=== PATIENT | male | born 1980 | race Caucasian/White ===

== ENCOUNTER 2017-07-02 19:17 | Emergency (ER) | payer OTHER ==
[2017-07-02 19:30] VITALS: BP 129/83; PULSE 75; RESP 18; TEMP 97.9; O2SAT 99
[2017-07-02] MEDS ORDERED: FLUORESCEIN SODIUM 1 MG STRIP OP ONE (19:30)
[2017-07-02] MEDS ORDERED: PROPARACAINE 0.5% 15 ML OPHT DROP ONE (19:30)
[2017-07-02] MEDS ORDERED: TOBRAMYCIN 0.3% SOLN PREPACK OPHT.BTL TAKEHOME ONE (19:42)
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
== END 2017-07-02 19:52 | disposition home or self-care (01) ==
DX: S05.02XA Injury of conjunctiva and corneal abrasion without foreign body, left eye, initial encounter (principal); W50.0XXA Accidental hit or strike by another person, initial encounter

== ENCOUNTER 2018-03-29 08:17 | Observation (INO) | payer OTHER ==
[2018-03-29] MEDS ORDERED: NS 1,000 ML IV ONE ×2 (08:29→09:22)
[2018-03-29 09:14] LABS: PLATELET COUNT 153 10^3/uL (150-400)
--- NOTE | 2018-03-29 09:38 | EDPHY ---
H & P Stated Complaint: syncope x 3 today Time Seen by Provider: 03/29/18 08:24 HPI/ROS: CHIEF COMPLAINT: Syncope HISTORY OF PRESENT ILLNESS: The patient presents to the ED after 3 episodes of syncope today. The patient denies any chest pain or shortness of breath. The patient denies any fever, cough or congestion. He denies any melena. The patient does have a history of back pain. He has been taking Flexeril at night since of last week. He does use occasional Aleve. The patient denies any significant past medical history. The patient has no history of exertional chest pain or shortness of breath. Patient does report he works in a high stress job. REVIEW OF SYSTEMS: A comprehensive 10 point review of systems is otherwise negative aside from elements mentioned in the history of present illness. Source: Patient Exam Limitations: No limitations - Personal History Current Tetanus Diphtheria and Acellular Pertussis (TDAP): Yes Tetanus Vaccine Date: 2010 - Medical/Surgical History Hx Asthma: No Hx Chronic Respiratory Disease: No Hx Diabetes: No Hx Cardiac Disease: No Hx Renal Disease: No Hx Cirrhosis: No Hx Alcoholism: No Hx HIV/AIDS: No Hx Splenectomy or Spleen Trauma: No Other PMH: anxiety/knee surg - Social History Smoking Status: Never smoked - Physical Exam Exam: General Appearance: Alert, no distress Eyes: Pupils equal and round no pallor or injection ENT, Mouth: Mucous membranes moist Respiratory: There are no retractions, lungs are clear to auscultation Cardiovascular: Regular rate and rhythm Gastrointestinal: Abdomen is soft and nontender, no masses, bowel sounds normal Neurological: A&O, normal motor function, normal sensory exam, normal cranial nerves Skin: Warm and dry, no rashes Musculoskeletal: Neck is supple nontender Extremities: symmetrical, full range of motion Psychiatric: Patient is oriented X 3, there is no agitation Constitutional: Initial Vital Signs Temperature (C) 36.5 C 03/29/18 08:21 Heart Rate 67 03/29/18 08:21 Respiratory Rate 18 03/29/18 08:21 Blood Pressure 108/77 03/29/18 08:21 O2 Sat (%) 100 03/29/18 08:21 O2 Delivery Mode Room Air Allergies/Adverse Reactions: No Known Allergies Allergy (Verified 03/29/18 08:20) Home Medications: Medication Instructions Recorded Flexeril 10 MG (*) 03/29/18 Medical Decision Making - Diagnostics EKG Interpretation: EKG: Complete interpretation has been separately recorded in the [facility] archive. Summary impression: Sinus rhythm Imaging Results: Imaging Impressions Chest/Thorax CTA 03/29/18 10:40 Impression: 1. No acute pulmonary embolus. 2. Tiny less than 4 mm nodules in the right upper lobe are more than likely benign given age. Would only consider 12 month follow-up if the patient is at increased risk of lung cancer. Findings and recommendations discussed with Lee Ramon at 1151 hour, . ED Course/Re-evaluation: The patient presents to the ED after having 3 discrete episodes of syncope today. The 1st syncope may have been positional as it occurred in the restroom the 2nd 2 episodes occurred while sitting. The patient does have a history of anxiety and reportedly is in the high stress environment. He denies any significant chest pain or shortness of breath. He denies asymmetric calf pain or swelling. He denies any pleuritic symptoms. The patient presents the emergency department with an EKG that demonstrates no ischemic changes but does demonstrate mild evidence of right heart strain. An echocardiogram was performed which did demonstrate some evidence of right ventricular hypertrophy and a bicuspid aortic valve. CT angiogram of the chest demonstrated no evidence of a pulmonary embolism or dissection. The case was discussed with Dr. Thomas from Cardiology who reviewed the echocardiogram who recommends admission to the hospital for 24 hr telemetry monitoring in the setting of his abnormal echocardiogram. The patient remained hemodynamically stable throughout his time in the emergency department. I re-evaluated the patient at 12:00 p.m.. He is amenable for hospitalization. Consultation was made with the hospitalist service. The patient will be admitted by Dr. Lentz Differential Diagnosis: Differential diagnosis considered includes vasovagal episode, dehydration, metabolic abnormality, arrhythmia, pulmonary embolism, dissection, valvular heart disease - Data Points Laboratory Results: Laboratory Results 03/29/18 08:55 03/29/18 08:55 03/29/18 03/29/18 03/29/18 08:55 08:55 08:55 WBC 7.57 10^3/uL 10^3/uL (3.80-9.50) RBC 5.09 10^6/uL 10^6/uL (4.40-6.38) Hgb 15.8 g/dL g/dL (13.7-17.5) Hct 46.1 % % (40.0-51.0) MCV 90.6 fL fL (81.5-99.8) MCH 31.0 pg pg (27.9-34.1) MCHC 34.3 g/dL g/dL (32.4-36.7) RDW 12.6 % % (11.5-15.2) Plt Count 153 10^3/uL 10^3/uL (150-400) MPV 12.0 fL H fL (8.7-11.7) Neut % (Auto) 73.6 % % (39.3-74.2) Lymph % (Auto) 17.8 % % (15.0-45.0) [place] % (Auto) 6.6 % % (4.5-13.0) Eos % (Auto) 1.5 % % (0.6-7.6) Baso % (Auto) 0.4 % % (0.3-1.7) Nucleat RBC Rel Count 0.0 % % (0.0-0.2) Absolute Neuts (auto) 5.57 10^3/uL 10^3/uL (1.70-6.50) Absolute Lymphs (auto) 1.35 10^3/uL 10^3/uL (1.00-3.00) Absolute Monos (auto) 0.50 10^3/uL 10^3/uL (0.30-0.80) Absolute Eos (auto) 0.11 10^3/uL 10^3/uL (0.03-0.40) Absolute Basos (auto) 0.03 10^3/uL 10^3/uL (0.02-0.10) Absolute Nucleated RBC 0.00 10^3/uL 10^3/uL (0-0.01) Immature Gran % 0.1 % % (0.0-1.1) Immature Gran # 0.01 10^3/uL 10^3/uL (0.00-0.10) Sodium 140 mEq/L mEq/L (135-145) Potassium 4.8 mEq/L mEq/L (3.3-5.0) Chloride 105 mEq/L mEq/L (97-110) Carbon Dioxide 24 mEq/l mEq/l (22-31) Anion Gap 11 mEq/L mEq/L (6-14) BUN 22 mg/dL mg/dL (7-23) Creatinine 1.0 mg/dL mg/dL (0.7-1.3) Estimated GFR > 60 Glucose 103 mg/dL H mg/dL (70-100) Calcium 9.8 mg/dL mg/dL (8.5-10.4) Troponin I < 0.012 ng/mL ng/mL (0.000-0.034) Medications Given: Discontinued Medications Sodium Chloride (Ns) 1,000 mls @ 0 mls/hr IV EDNOW ONE; Wide Open PRN Reason: Protocol Stop: 03/29/18 08:30 Last Admin: 03/29/18 09:02 Dose: 1,000 mls Sodium Chloride (Ns) 1,000 mls @ 0 mls/hr IV EDNOW ONE; Wide Open PRN Reason: Protocol Stop: 03/29/18 09:23 Last Admin: 03/29/18 09:55 Dose: 1,000 mls Departure - Departure Disposition: [facility] Inpatient Acute Clinical Impression: Syncope Qualifiers: Encounter type: initial encounter Condition: Good Referrals: Leena Norman MD [Primary Care Provider] - As per Instructions
--- NOTE | 2018-03-29 09:46 | CPEKG ---
Test Reason : OPEN Blood Pressure : / mmHG Vent. Rate : 069 BPM Atrial Rate : 070 BPM P-R Int : 186 ms QRS Dur : 093 ms QT Int : 407 ms P-R-T Axes : 069 112 062 degrees QTc Int : 436 ms Sinus rhythm Left atrial enlargement Right axis deviation Confirmed by Lee Ramon ([id number]) on 03/29/2018 9:45:56 AM Referred By: Confirmed By:Lee Ramon
[2018-03-29] MEDS ORDERED: IOPAMIDOL (ISOVUE 370) 100 ML BTL IV ONE (11:05)
--- NOTE | 2018-03-29 11:28 | ECHO ---
[email or web address] [address] [address] Main: [phone] Fax: [email or web address] Echocardiogram Name: MATTHIEU WALLACE MR#: [id number] Study Date: 03/29/2018 Study Time: 10:12 AM Date of : 1980 Age: 37 year(s) Height: 182.9 cm (72 in.) Weight: 72.58 kg (160 lb.) BSA: 1.94 m2 Gender: Male Examination: Echo Indication: Chest pain/syncope x 3 Image Quality: Contrast: Requested by: Lee Ramon BP: 121 mmHg/83 mmHg Heart Rate: Rhythm: Indication: Chest pain/syncope x 3 Procedure Staff Sample Body Builder: Alexus Carreno [facility] Reading Physician: Dori Thomas MD Requesting Provider: Conclusions: Normal size left ventricle. No LV hypertrophy. Global hypercontractility of the left ventricle. The ejection fraction is estimated to be 70-75 %. No regional wall motion abnormality. Normal diastolic LV function. Mildly dilated right ventricle. RV apical hypokinesis.. The right atrium is mildly dilated. Mild mitral valve regurgitation is present. Bicuspid aortic valve. Trivial to mild aortic valve regurgitation. No aortic valve stenosis is present. Mild tricuspid regurgitation is present. The pulmonary artery pressure is normal. Mildly dilated ascending aorta measuring 4.0 cm. No prior study Patient will require cardiology follow up because of BAV mildly dilated ascending aorta and RV abnormalities. Measurements: Chambers Valvular Assessment AV/MV Valvular Assessment TV/PV Normal Normal Normal Name Value Range Name Value Range Name Value Range Ao Ailyn (MM): 3.8 cm (2.2 cm-3.7 AV Vmax: 1.73 m/s (1 m/s-1.7 TR Vmax: 2.67 mm/s ( - ) cm) m/s) TR PGmax: 29 mmHg ( - ) IVSd (2D): 0.8 cm (0.6 cm-1.1 AV maxP mmHg ( - ) syst. PAP: 34 mmHg ( - ) cm) AV meanP mmHg ( - ) LVDd (2D): 4.5 cm (4.2 cm-5.9 MV E Vmax: 1.17 m/s ( - ) cm) Patient: MATTHIEU WALLACE Study Date: 03/29/2018 Page 1 of 2 10:12 AM LVDs (2D): 2.4 cm (2.1 cm-4 MV A Vmax: 0.80 m/s ( - ) cm) MV E/A: 1.46 ( - ) LVPWd (2D): 0.8 cm (0.6 cm-1 cm) LVEF (BP): 80 % (>=55 %) EF Range: 70-75 % Continued Measurements: Chambers Valvular Assessment AV/MV Valvular Assessment TV/PV Name Value Name Value Name Value LADs: 2.8 cm MV E/E' Septal: 9.40 CVP (est.): 5 mmHg LADs Lon.7 cm MV E/E' Lateral: 7.90 LA Area: 14.3 cm2 Additional Vessels Name Value Ao Ascendin.0 cm Findings: Left Ventricle: Normal size left ventricle. No LV hypertrophy. Global hypercontractility of the left ventricle. The ejection fraction is estimated to be 70-75 %. No regional wall motion abnormality. Normal diastolic LV function. Right Ventricle: Mildly dilated right ventricle. RV apical hypokinesis.. Left Atrium: The left atrium is normal in size. Right Atrium: The right atrium is mildly dilated. Mitral Valve: The mitral valve is normal in appearance and function. Mild mitral valve regurgitation is present. Aortic Valve: Bicuspid aortic valve. Trivial to mild aortic valve regurgitation. No aortic valve stenosis is present. Tricuspid Valve: The tricuspid valve is normal in appearance and function. Mild tricuspid regurgitation is present. The pulmonary artery pressure is normal. Pulmonic Valve: The pulmonic valve is normal in appearance and function. Aorta: The aorta is normal. Mildly dilated ascending aorta measuring 4.0 cm. Pericardium: No pericardial effusion. (No Signature Object) Patient: MATTHIEU WALLACE Study Date: 03/29/2018 Page 2 of 2 10:12 AM [id number]
[2018-03-29] MEDS ORDERED: CYCLOBENZAPRINE 10 MG TAB PO PRN (15:47)
[2018-03-29] MEDS ORDERED: ALPRAZOLAM 1 MG PO PRN (15:47)
[2018-03-29] MEDS ORDERED: ONDANSETRON DISINTEGRATING 4 MG TAB PO PRN (16:57)
[2018-03-29] MEDS ORDERED: ACETAMINOPHEN 325 MG TAB PO PRN (16:57)
[2018-03-29] MEDS ORDERED: ONDANSETRON 4 MG/2 ML VIAL IVP PRN (16:57)
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
[2018-03-29] MEDS ORDERED: NAPROXEN SODIUM 220 MG TAB PO PRN (21:06)
--- NOTE | 2018-03-29 21:34 | GCON ---
CARDIOLOGY CONSULTATION DATE OF CONSULTATION: 03/29/2018 REFERRING PHYSICIAN: Luis Lentz MD CHIEF COMPLAINT: Syncope. HISTORY OF PRESENT ILLNESS: We were asked by Dr. Lentz to visit the patient. The patient is a pl easant 37-year-old male with no previous cardiac diagnoses. He is admitted after 3 separate episodes of syncope today that occurred in fairly rapid succession. 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 When he woke up this morning, got out of bed, he felt slightly lightheaded. He we nt into the bathroom and turned on the shower. He sat on the toilet, not to have a bowel movement, b ut to just sit down. All of a sudden he felt lightheaded and a feeling of being drained. He thinks he fainted for a few seconds because he dropped his phone, but he did not fall off the toilet. He th en got up, took a shower and went downstairs. He was sitting eating breakfast and felt lightheaded a gain and put his head down on the table. He did not notice chest pain or palpitations at this time. His reports that he looked harley and his pupils were dilated. He was very concerned and was therefore driven to his primary care office. He felt unwell in the car , again with a prodrome of presyncope. Before he could get out of the car, he had a short episode of syncope. He was then sent to the [facility] Emergency Department. In the ER, his initial blood pressure was 108/77 with a heart rate of 67. He reports feeling again t hat presyncopal sensation. So far on the monitor, he has not had any arrhythmias. He does report th at occasionally he feels palpitations, but he does not report any palpitations associated with today' s episodes of presyncope or syncope. Over the past week he has had back pain, and he has been taking Flexeril nightly. He also has been taking Aleve nightly for several months. REVIEW OF SYSTEMS: Under significant stress. He has a long history of anxiety. Otherwise, a full 1 0-point review of systems was performed, and is negative except that which is outlined above. He jensen s have a history of migraines, but migraines have not increased recently. He has been eating and dri nking normally. No illicit drug use and no increased alcohol intake beyond his moderate baseline. ALLERGIES: No known drug allergies. PAST MEDICAL HISTORY: 1. Anxiety. 2. Bicuspid aortic valve diagnosed this admission. 3. Mildly dilated ascending aorta diagnosed this admission. OUTPATIENT MEDICATIONS: Flexeril and Aleve as detailed above. No zfbo-hoa-kstanfh supplements. Chapo parker p.r.n. He has not taken this in the past few days. SOCIAL HISTORY: Patient is . His is at the bedside. They are both mechanical engineers at . They have a 4-year-old daughter. He does not smoke cigarettes. He drinks alcohol in modera tion. No illicit drugs. FAMILY HISTORY: Paternal cousin had sudden at age 21. By report, she had long QT and mitral v alve prolapse. His father has SVT. There is no history of premature coronary disease. PHYSICAL EXAMINATION: VITAL SIGNS: Blood pressure currently 129/89, heart rate 78, blood respirator y rate is 18, and he is afebrile. GENERAL: Well-appearing middle-aged male in no acute distress. HEENT: Sclerae free of jaundice. Mucous membranes are moist. CARDIOVASCULAR: JVP is less than 10. Carotids equal and 2+ without bruit. Regular rate and rhythm with soft systolic ejection click. No murmur, rub, or gallop. LUNGS: Clear bilaterally without wheezes, rhonchi, or rales. ABDOMEN: Soft, nontender, nondistended, without bruits, masses, or hepatosplenomegaly. EXTREMITIES: Warm and well perfused without cyanosis, clubbing, or edema NEURO: Alert and oriented x3 without gross focal neurologic deficits. Appropriate mood and affect. LABORATORY DATA: CBC is essentially normal. Basic metabolic panel is normal except for glucose of 1 03. This is nonfasting. Troponin negative x1. EKG, reviewed by me: Sinus rhythm with normal axis and normal intervals. Artifact in the anterior p recordial leads. No evidence of pre-excitation or Brugada pattern. No epsilon wave. No ischemic ch anges. Echocardiogram, reviewed by me: Normal LV size and systolic function. No regional wall motion abnor malities. Normal diastolic function. The right ventricle is mildly dilated with subtle RV apical hy pokinesis. The aortic valve is bicuspid with trivial to mild aortic valve regurgitation and no aorti c stenosis. Ascending aorta is mildly dilated at 4 cm. No pericardial effusion. Chest CT: No pulmonary embolism. Very small nodules in the right upper lobe, most likely benign. ASSESSMENT AND PLAN: 37-year-old male with 3 episodes of presyncope and syncope today. By history, this sounds most likely vagal. He does have a long history of syncope related to stress and also rel ated to blood draws. He has never had exertional syncope. He does have now a new diagnosis of bicus pid aortic valve, but I do not think this contributed to his clinical presentation today. It is poss ible that anxiety plus Flexeril mixed together exacerbated hemodynamic response to vagal stimulus. 1. Syncope: Most likely vagal. However, his right ventricular has an abnormal appearance on echoca rdiogram. I suggested a cardiac MRI at the [facility] for more definitive evaluation, specifically t o rule out arrhythmogenic right ventricular dysplasia. We will monitor on tele. I recommend a 30-da y outpatient monitor as well. He will have an exercise nuclear stress test tomorrow to evaluate for obstructive coronary disease, although I do not think that this is a presentation of acute coronary s yndrome given his lack of chest pain, negative troponin and nonischemic EKG as well as his lack of co ronary artery risk factors. If he has no arrhythmia or symptoms during his 30-day monitoring, could consider LINQ implantation. 2. Bicuspid aortic valve: Trivial to mild aortic regurgitation without . Mild dilation of the as cending aorta. This will need to be followed by serial echos in the outpatient setting. He does giv e a history of migraine headaches. He reports that he had some brain imaging at [place] several yea rs ago. He will bring these reports to his outpatient followup. It would be prudent to evaluate his cerebral circulation if this has not already been done, given the association between bicuspid aorti c valve and cerebral aneurysms. His current presentation is not consistent with a primary neurologic al problem. 3. Mildly dilated ascending aorta: No dissection. He was counseled to avoid heavy weight lifting. Would not start beta blockers or xlwyojngcpr-zxxwffgtdr-hbjwxg inhibitors at this time. Will need s erial outpatient followup. Thank you for allowing us to participate in the patient's care. We will follow with you. /[id number]/MODL
[2018-03-30 04:39] LABS: PLATELET COUNT 149 10^3/uL (150-400)
--- NOTE | 2018-03-30 09:18 | PDCARPN ---
Cardiology Progress Note Assessment/Plan: Assessment/plan: 37-year-old male with syncope. By history this sounds most consistent with vasovagal etiology. His workup to date includes negative troponins, normal orthostatic vital signs. Echocardiogram does document bicuspid aortic valve with mild regurgitation. Mild dilation ascending aorta. His right ventricle looks slightly abnormal on echo. His other medical history includes anxiety, migraine headaches and low back pain. 1. Syncope: Most likely vasovagal. However, given his mildly abnormal echo we will refer him to the [facility] for cardiac MRI for definitive evaluation of arrhythmogenic right ventricular dysplasia. He will wear a 30 day [employer] monitor. Exercise nuclear stress test today to evaluate for obstructive coronary disease, although I do not think this is likely contributor to his symptoms. 2. Bicuspid aortic valve: He will require surveillance echocardiograms in the outpatient setting. I recommended that his first-degree relatives be screened with echocardiograms. Ascending aorta is only mildly dilated. Exercise recommendations, including avoidance a very heavy lifting, were reviewed. I will not put him on a beta-damian at this time. 3. Mildly abnormal right ventricle on echocardiogram: Cardiac MRI as above for more definitive evaluation. No evidence of pulmonary embolism on admission chest CT. 4. Migraine headache: Reports brain imaging at [facility] a few years ago. He will obtain these results and we can review them at his follow-up visit. There is an association between bicuspid aortic valve and cerebral aneurysms, so I would like to make sure he has had cerebral angiography. 5. Anxiety and job stress: We spent a lot of time discussing possible strategies for stress management and how stress may be contributing to his current clinical picture. If his exercise nuclear stress test is normal, he is stable for discharge from a cardiovascular standpoint. Follow-up as detailed above. 03/30/18 09:40 Subjective: Reported brief palpitations a few times overnight. No events on telemetry. No presyncope syncope. No angina or dyspnea. Reviewed/Discussed With: family Objective: Vital Signs (8 Hrs) Temp Pulse Resp BP Pulse Ox 03/30/18 08:00 36.6 C 74 16 121/85 H 98 03/30/18 03:45 36.6 C 73 16 126/82 H 9 L Intake/Output (24 Hrs) 03/29/18 03/30/18 03/31/18 05:59 05:59 05:59 Intake Total 350 Balance 350 Intake: Oral (ml) 350 Other: Weight 72.575 kg Number of Voids Toilet 2 No acute distress. Regular rate and rhythm with soft ejection click. No murmur. No gallop. Lungs clear anteriorly and laterally Result Diagrams: 03/30/18 03:26 03/30/18 03:26 Cardiac Labs: Cardiac Lab Results (72 Hrs) 03/30/18 03:26 Troponin I < 0.012 Telemetry: NSR ICD10 Worksheet Patient Problems: Problems Problem Status Onset Syncope Acute
--- NOTE | 2018-03-30 15:08 | ASMTCMCOM ---
CM Note CM Note Notes: 03/30/2018 Case Management Note Pt admitted after episode of syncope. Pt has history of anxiety. Per RN pt has weekly counseling. Discussed pt during rounds this morning. Stress test planned for today. There are no therapy evals ordered at this time. Pt is employed and . Case Management d/c poc: anticipating independent with follow up as directed. Case Management to follow. Date Signed: 03/30/2018 03:07 PM Electronically Signed By:Elsa Feng RN
[2018-03-30 15:36] VITALS: BP 132/84
--- NOTE | 2018-03-30 15:53 | PDDCSUM ---
Discharge Summary Discharge Summary: This is a 37-year-old male admitted with syncope. Etiology is most consistent with vasovagal etiology. His workup during this admission included negative nuclear stress test, negative troponins, normal orthostatic vital signs. Echocardiogram does document bicuspid aortic valve with mild regurgitation. Mild dilation ascending aorta. His right ventricle looks slightly abnormal on echo. given his mildly abnormal echo we will refer him to the [facility] for cardiac MRI for definitive evaluation of arrhythmogenic right ventricular dysplasia He will wear a 30 day event monitor He will f/u with Dr. Dori Thomas Discharge Diagnosis 1. Syncope: Most likely vasovagal. 2. Bicuspid aortic valve: He will require surveillance echocardiograms in the outpatient setting. Cardiology recommended that his first-degree relatives be screened with echocardiograms. Ascending aorta is only mildly dilated. Exercise recommendations, including avoidance a very heavy lifting, were reviewed. He was not started on a beta-damian at this time. 3. Mildly abnormal right ventricle on echocardiogram: Cardiac MRI as above for more definitive evaluation. No evidence of pulmonary embolism on admission chest CT. 4. Migraine headache: Reports brain imaging at [place] a few years ago. He will obtain these results and will review with Dr. Thomas at f/u. There is an association between bicuspid aortic valve and cerebral aneurysms. Exam: NAD AAOX3 RRR CTA B S/NT/ND NO NEURO DEFICIT MEDS: SEE MED REC. NO NEW MEDS PROVIDED F/U: PER ABOVE TOTAL TIME SPENT ON D/C IS 35 MINS
--- NOTE | 2018-03-30 16:00 | CPIP ---
DATE OF PROCEDURE: 03/30/2018 EXERCISE STRESS TEST REPORT INDICATIONS: Syncope and palpitations. COMPLICATIONS: None. DESCRIPTION OF PROCEDURE: Informed consent was obtained. The patient was established to the monitor . He underwent exercise stress testing with standard [facility] protocol. At peak exercise, he was injec jamia with technetium and walked for an additional 1 minute. Data: 1. Resting EKG shows sinus rhythm with delayed R-wave progression. 2. Peak EKG shows no ischemic changes. 3. Arrhythmias none. 4. Resting blood pressure 108/78. Resting heart rate 85 beats per minute. Peak blood pressure 168/ 80. Peak heart rate 168 beats per minute, which represents 92% of the age-predicted maximum heart ra te. CONCLUSIONS: 1. Normal exercise tolerance and normal hemodynamic response to exercise. 2. No arrhythmias or ischemic EKG changes. 3. Await nuclear images. /[id number]/MODL
--- NOTE | 2018-03-30 16:53 | ASDISCHSUM ---
Discharge Information Plan Status:Home with No Needs Medically Cleared to Leave:03/30/2018 Discharge Date:03/30/2018 CM D/C Disposition:Home, Routine, Self-Care ADT D/C Disposition:Home, Routine, Self-Care Projected Discharge Date:03/30/2018 Transportation at D/C:Family Discharge Delay Reason: Follow-Up Date:03/30/2018 Discharge Slot: Final Diagnosis: Placement Information Patient Contact Information Contact Name:TANMAY Relationship: Address: Work Phone: City: [facility] Phone: State/[employer] Code: Email: Financial Information Financial Class:BCOP Primary Plan Desc:LOBO [facility] Primary Plan Number:[id number] Secondary Plan Desc: Secondary Plan Number: Assessment Information LACE LACE Length of stay for Answers: 1 day current admission Acuity / Level of Answers: No Care: Did the patient have an inpatient admission? Comorbidities - select Answers: Other Notes: syncope all that apply # of Emergency department Answers: 1-2 visits in the last 6 months Social determinants Answers: Mental health diagnosis (anxiety, depression, pers onality disorders, etc.) Score: 6 Date Signed: 03/30/2018 04:52 PM Electronically Signed By:Elsa Feng RN [facility] CM Progress Note CM Note CM Note Notes: 03/30/2018 Case Management Note Pt admitted after episode of syncope. Pt has history of anxiety. Per RN pt has weekly counseling. Discussed pt during rounds this morning. Stress test planned for today. There are no therapy evals ordered at this time. Pt is employed and . Case Management d/c poc: anticipating independent with follow up as directed. Case Management to follow. Date Signed: 03/30/2018 03:07 PM Electronically Signed By:Elsa Feng RN Intervention Information
== END 2018-03-30 16:53 | disposition home or self-care (01) ==
LOC: F2W 13:45
PROVIDERS: ADMIT Family Medicine; ATTEND Family Medicine
DX: R55 Syncope and collapse (principal); Q23.1 Congenital insufficiency of aortic valve; G43.909 Migraine, unspecified, not intractable, without status migrainosus
CPT/HCPCS: 71275; 78452; 90471; 93005; 93017; 93306; 99285; A9500; G0378; G0008; Q9967